=== PATIENT | female | born 1955 | race Caucasian/White ===

== ENCOUNTER → 2017-01-17 | Outpatient (CLI) | payer OTHER ==
--- NOTE | 2017-01-17 16:52 | XR ---
EXAMINATION TYPE: XR knee complete LT DATE OF EXAM: 01/17/2017 COMPARISON: NONE HISTORY: Knee pain. Injury. TECHNIQUE: 3 views FINDINGS: There is mild spurring of the medial femoral and tibial condyles. There is spurring on the patella. There is a small knee joint effusion. I see no fracture nor dislocation. 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 No fracture.
== END ==
LOC: RADXRMAIN 16:37
PROVIDERS: ATTEND Emergency Medicine
DX: M17.12 Unilateral primary osteoarthritis, left knee (principal)

== ENCOUNTER 2017-02-09 14:27 | Emergency (ER) | payer BC, OTHER ==
[2017-02-09] MEDS ORDERED: LORazepam 2 MG/ML INJ IM STA (14:51)
[2017-02-09] MEDS ORDERED: MECLIZINE 12.5 MG TAB PO STA (14:51)
[2017-02-09 15:07] LABS: Basophils % (A) 1 %; CH 31.9; CHCM 34.8; Eosinophils # (A) 0.1 k/uL (0-0.7); Eosinophils % (A) 2 %; HCT 48.2 % (34.0-46.0); HGB 16.4 gm/dL (11.4-16.0); Luc # (Auto) 0.07; Luc % (Auto) 1; Lymphocytes # (A) 0.8 k/uL (1.0-4.8); Lymphocytes % (A) 16 %; MCH 31.3 pg (25.0-35.0); MCHC 34.1 g/dL (31.0-37.0); MCV 91.9 fL (80.0-100.0); Mean Platelet Volume 8.6; Monocytes # (A) 0.3 k/uL (0-1.0); Monocytes % (A) 7 %; Neutrophils # (A) 3.5 k/uL (1.3-7.7); Neutrophils % (A) 74 %; RBC 5.24 m/uL (3.80-5.40); RDW 13.2 % (11.5-15.5); WBC 4.8 k/uL (3.8-10.6); WBC (Perox) 4.49
[2017-02-09 15:23] LABS: ALT 33 U/L (9-52); AST 22 U/L (14-36); Alkaline Phosphatase 78 U/L (38-126); Anion Gap 10 mmol/L; Blood Urea Nitrogen 12 mg/dL (7-17); Calcium 9.7 mg/dL (8.4-10.2); Carbon Dioxide 23 mmol/L (22-30); Chloride 102 mmol/L (98-107); Glucose 97 mg/dL (74-99); Non-African American GFR(MDRD) >60 (>60 ml/min/1.73 sqM); Potassium 4.4 mmol/L (3.5-5.1); Sodium 135 mmol/L (137-145); Total Bilirubin 0.6 mg/dL (0.2-1.3); Total Protein 7.4 g/dL (6.3-8.2)
--- NOTE | 2017-02-09 15:48 | CT ---
EXAMINATION TYPE: CT brain wo con DATE OF EXAM: 02/09/2017 COMPARISON: NONE HISTORY: Dizziness. History of CVA CT DLP: 1090.4 mGycm Automated exposure control for dose reduction was used. FINDINGS: Ventricles have fairly normal size. There is a 4 x 3 cm area of hypodensity in the left posterior tem poral lobe consistent with old cortical infarct. There is no mass effect nor midline shift. There is no sign of intracranial hemorrhage. The calvarium is intact. There is a large mucus retention cyst in the right maxillary sinus. 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 NO ACUTE INTRACRANIAL ABNORMALITY.
[2017-02-09] MEDS ORDERED: ACETAMINOPHEN TAB 500 MG TAB PO STA (16:00)
[2017-02-09 16:01] VITALS: RESP 18
--- NOTE | 2017-02-09 16:19 | XR ---
EXAMINATION TYPE: XR chest 2V DATE OF EXAM: 02/09/2017 COMPARISON: 03/07/2015 HISTORY: Hypertension TECHNIQUE: Frontal and lateral views of the chest are obtained. FINDINGS: Heart and mediastinum are normal. Lungs are clear. Diaphragm is normal. Bony thorax is int act. IMPRESSION: Normal chest. No change.
--- NOTE | 2017-02-09 16:24 | ED ---
Dizziness HPI - General Chief Complaint: Dizziness Stated Complaint: dizzy/hearing sounds Time Seen by Provider: 02/09/17 14:44 Source: patient Mode of arrival: wheelchair Limitations: no limitations - History of Present Illness Initial Comments: 61 years old female had a headache and dizziness since this morning denies any problem with her physician no chest pain no shortness of breath no symptoms or signs of TIA or CVA she does have a history of CVA in the past there was 5 years ago she also had a headache today. Review of system is unremarkable otherwise - Related Data Home Medications Medication Instructions Recorded Confirmed ALPRAZolam [Xanax] 0.25 mg PO BID PRN 03/07/15 02/09/17 Atenolol 37.5 mg PO DAILY 03/07/15 02/09/17 Clopidogrel [Plavix] 75 mg PO DAILY 03/07/15 02/09/17 Desvenlafaxine Succinate [Pristiq 100 mg PO DAILY 03/07/15 02/09/17 ER] Varenicline [Chantix] 0.5 mg PO BID 02/09/17 02/09/17 Previous Rx's Medication Instructions Recorded Amoxicillin 500 mg PO Q8H #30 capsule 02/09/17 Metoclopramide [Reglan] 10 mg PO ACHS #15 tab 02/09/17 Allergies Allergy/AdvReac Type Severity Reaction Status Date / Time No Known Allergies Allergy Verified 02/09/17 15:17 Review of Systems ROS Statement: Those systems with pertinent positive or pertinent negative responses have been documented in the HPI. ROS Other: All systems not noted in ROS Statement are negative. Past Medical History Past Medical History: CVA/TIA, Hyperlipidemia, Hypertension History of Any Multi-Drug Resistant Organisms: None Reported Past Surgical History: Appendectomy, Cholecystectomy, Orthopedic Surgery Additional Past Surgical History / Comment(s): cholostomy, reversal cholostomy, lap band, knee and hip replaced Past Psychological History: Anxiety, Depression Smoking Status: Former smoker Past Alcohol Use History: Occasional Past Drug Use History: None Reported General Exam - General Exam Comments Initial Comments: General: The patient is awake and alert, in no distress, and does not appear acutely ill. He has is 15 Skin: Skin is warm and dry and no rashes or lesions are noted. Eye: Pupils are equal, round and reactive to light, extra-ocular movements are intact; there is normal conjunctiva bilaterally. Ears, nose, mouth and throat: Tympanic membrane is erythematous and bulging and noticed some fluid on the other side bend the tympanic membrane Neck: The neck is supple, there is no tenderness or JVD. Cardiovascular: There is a regular rate and rhythm. No murmur, rub or gallop is appreciated. Respiratory: To auscultation bilateral, no wheezing no rhonchi no distress respiratory blanca noticed Gastrointestinal: Soft, non-distended, non-tender abdomen without masses or organomegaly noted. There is no rebound or guarding present. Bowel sounds are unremarkable. Back: There is no tenderness to palpation in the midline. There is no obvious deformity. Musculoskeletal: Normal ROM, no tenderness, There is no pedal edema. There is no calf tenderness or swelling. No cords were appreciated. Neurological: CN II-XII intact, Cranial nerves III through XII are intact. There are no obvious motor or sensory deficits. Coordination appears grossly intact. Speech is normal. Psychiatric: Cooperative, appropriate mood & affect, normal judgment. Limitations: no limitations Course Vital Signs 02/09/17 02/09/17 14:28 16:00 Temperature 100.7 F H 101.2 F H Pulse Rate 81 74 Respiratory 20 18 Rate Blood Pressure 137/80 178/69 O2 Sat by Pulse 97 98 Oximetry EKG Findings - EKG Comments: EKG Findings:: EKG is normal sinus rhythm ventricular rate of 77 DE interval is 164 QRS duration is 78 QT/QTc is 366/414 of this EKG did not reveal any ST elevation or ST depression Medical Decision Making - Lab Data Result diagrams: 02/09/17 14:51 02/09/17 14:51 Lab Results 02/09/17 02/09/17 02/09/17 Range/Units 14:51 14:51 14:51 WBC 4.8 (3.8-10.6) k/uL RBC 5.24 (3.80-5.40) m/uL Hgb 16.4 H (11.4-16.0) gm/dL Hct 48.2 H (34.0-46.0) % MCV 91.9 (80.0-100.0) fL MCH 31.3 (25.0-35.0) pg MCHC 34.1 (31.0-37.0) g/dL RDW 13.2 (11.5-15.5) % Plt Count 212 (150-450) k/uL Neutrophils % 74 % Lymphocytes % 16 % Monocytes % 7 % Eosinophils % 2 % Basophils % 1 % Neutrophils # 3.5 (1.3-7.7) k/uL Lymphocytes # 0.8 L (1.0-4.8) k/uL Monocytes # 0.3 (0-1.0) k/uL Eosinophils # 0.1 (0-0.7) k/uL Basophils # 0.0 (0-0.2) k/uL Sodium 135 L (137-145) mmol/L Potassium 4.4 (3.5-5.1) mmol/L Chloride 102 (98-107) mmol/L Carbon Dioxide 23 (22-30) mmol/L Anion Gap 10 mmol/L BUN 12 (7-17) mg/dL Creatinine 0.82 (0.52-1.04) mg/dL Est GFR (MDRD) Af Amer >60 (>60 ml/min/1.73 sqM) Est GFR (MDRD) Non-Af >60 (>60 ml/min/1.73 sqM) Glucose 97 (74-99) mg/dL Plasma Lactic Acid Matias (0.7-2.0) mmol/L Calcium 9.7 (8.4-10.2) mg/dL Total Bilirubin 0.6 (0.2-1.3) mg/dL AST 22 (14-36) U/L ALT 33 (9-52) U/L Alkaline Phosphatase 78 (38-126) U/L Troponin I <0.012 (0.000-0.034) ng/mL Total Protein 7.4 (6.3-8.2) g/dL Albumin 4.4 (3.5-5.0) g/dL 02/09/17 Range/Units 14:51 WBC (3.8-10.6) k/uL RBC (3.80-5.40) m/uL Hgb (11.4-16.0) gm/dL Hct (34.0-46.0) % MCV (80.0-100.0) fL MCH (25.0-35.0) pg MCHC (31.0-37.0) g/dL RDW (11.5-15.5) % Plt Count (150-450) k/uL Neutrophils % % Lymphocytes % % Monocytes % % Eosinophils % % Basophils % % Neutrophils # (1.3-7.7) k/uL Lymphocytes # (1.0-4.8) k/uL Monocytes # (0-1.0) k/uL Eosinophils # (0-0.7) k/uL Basophils # (0-0.2) k/uL Sodium (137-145) mmol/L Potassium (3.5-5.1) mmol/L Chloride (98-107) mmol/L Carbon Dioxide (22-30) mmol/L Anion Gap mmol/L BUN (7-17) mg/dL Creatinine (0.52-1.04) mg/dL Est GFR (MDRD) Af Amer (>60 ml/min/1.73 sqM) Est GFR (MDRD) Non-Af (>60 ml/min/1.73 sqM) Glucose (74-99) mg/dL Plasma Lactic Acid Matias 1.3 (0.7-2.0) mmol/L Calcium (8.4-10.2) mg/dL Total Bilirubin (0.2-1.3) mg/dL AST (14-36) U/L ALT (9-52) U/L Alkaline Phosphatase (38-126) U/L Troponin I (0.000-0.034) ng/mL Total Protein (6.3-8.2) g/dL Albumin (3.5-5.0) g/dL Disposition Clinical Impression: Dizziness, Otitis media Disposition: HOME SELF-CARE Condition: Good Instructions: Dizziness (ED) Prescriptions: Amoxicillin 500 mg PO Q8H #30 capsule Metoclopramide [Reglan] 10 mg PO ACHS #15 tab Referrals: Anastasia Guillory III, MD [Primary Care Provider] - 1-2 days
[2017-02-09 16:59] VITALS: BP 135/68; PULSE 75; TEMP 98
== END 2017-02-09 17:00 | disposition home or self-care (01) ==
LOC: EC 14:27
DX: R42 Dizziness and giddiness (principal); H66.90 Otitis media, unspecified, unspecified ear; I10 Essential (primary) hypertension; F32.9 Major depressive disorder, single episode, unspecified; Z87.891 Personal history of nicotine dependence; Z86.73 Personal history of transient ischemic attack (TIA), and cerebral infarction without residual deficits; Z79.02 Long term (current) use of antithrombotics/antiplatelets; Z79.899 Other long term (current) drug therapy
CPT/HCPCS: 96372 ×2; 99284 ×2; 36415; 93005; 80053; 83605; 84484; 85025; 87040; 71020; 70450; J2060

== ENCOUNTER → 2017-11-27 | Outpatient (CLI) | payer BC ==
--- NOTE | 2017-12-03 09:54 | MM ---
Reason for exam: screening (asymptomatic). Last mammogram was performed 4 years and 3 months ago. History: Patient is postmenopausal. Physical Findings: A clinical breast exam by your physician is recommended on an annual basis and results should be correlated with mammographic findings. MG Screening Mammo w CAD Bilateral CC and MLO view(s) were taken. Prior study comparison: August 13, 2013, bilateral digital screening mammo w/CAD. There are scattered fibroglandular densities. Focal asymmetry left upper outer quadrant, stable. No significant changes when compared with prior studies. ASSESSMENT: Benign, BI-RAD 2 RECOMMENDATION: Routine screening mammogram of both breasts in 1 year.
== END | disposition home or self-care (01) ==
LOC: RADMAMWWP 13:33
PROVIDERS: ATTEND Family Medicine
DX: Z12.31 Encounter for screening mammogram for malignant neoplasm of breast (principal)
CPT/HCPCS: 77067

== ENCOUNTER 2020-05-19 06:07 | Observation (INO) | payer BC ==
[2020-05-19] MEDS ORDERED: ONDANSETRON 4 MG/2 ML VIAL IVP STA (06:23)
[2020-05-19] MEDS ORDERED: HYDROmorphone 1 MG/ML 1 ML SYRINGE IVP STA (06:23)
[2020-05-19] MEDS ORDERED: SODIUM CHLORIDE 0.9% 500 ML 500 ML IV STA (06:23)
[2020-05-19] MEDS ORDERED: SODIUM CHLORIDE 0.9% 1,000 ML IV STA (06:23)
[2020-05-19 06:32] LABS: Basophils # (A) 0.1 k/uL (0-0.2); Basophils % (A) 1 %; Eosinophils # (A) 0.2 k/uL (0-0.7); Eosinophils % (A) 3 %; HCT 48.4 % (34.0-46.0); HGB 16.9 gm/dL (11.4-16.0); Lymphocytes # (A) 2.6 k/uL (1.0-4.8); Lymphocytes % (A) 36 %; MCH 31.5 pg (25.0-35.0); MCV 90.2 fL (80.0-100.0); Mean Platelet Volume 8.5; Monocytes # (A) 0.4 k/uL (0-1.0); Monocytes % (A) 5 %; Neutrophils # (A) 3.8 k/uL (1.3-7.7); Neutrophils % (A) 52 %; Platelet Count 254 k/uL (150-450); RBC 5.36 m/uL (3.80-5.40); RDW 12.5 % (11.5-15.5); WBC 7.3 k/uL (3.8-10.6)
--- NOTE | 2020-05-19 06:37 | ED ---
Abdominal Pain HPI <Vic Alba - Last Filed: 05/19/20 08:30> - General Source: patient, family, RN notes reviewed Mode of arrival: wheelchair Limitations: no limitations <Jack Wong - Last Filed: 05/19/20 08:33> - General Chief Complaint: Abdominal Pain Stated Complaint: Abd Pain Time Seen by Provider: 05/19/20 06:12 - History of Present Illness Initial Comments: This a 64-year-old female presents emergency Department chief complaint of left- sided abdominal pain. Patient states this started on Friday states that she contact her primary care physician states that they cannot get into Friday she states that she could wait but states pain intensified this morning and overnight. Patient states she's felt nauseated no vomiting she's had normal bowel movements denies any diarrhea, constipation, melena hematochezia. Patient does admit that she had prior abdominal surgery which she had emergent surgery for perforated diverticulitis with colostomy, patient did have reversal. Patient has no dysuria no hematuria no increased weakness urination no fevers chills no chest pain or shortness breath. Patient states this is the worst pain she's ever felt. Patient states pain is localized to left lower quadrant. Patient offers no other complaints. (Jack Wong) - Related Data Home Medications Medication Instructions Recorded Confirmed Clopidogrel [Plavix] 75 mg PO DAILY 03/07/15 05/19/20 atenoloL [Atenolol] 37.5 mg PO DAILY 03/07/15 05/19/20 ALPRAZolam [Xanax] 0.5 mg PO HS 05/19/20 05/19/20 Acetaminophen [Tylenol Arthritis] 1,300 mg PO Q12H PRN 05/19/20 05/19/20 Vortioxetine Hydrobromide 10 mg PO DAILY 05/19/20 05/19/20 [Trintellix] lamoTRIgine [LaMICtal] 25 mg PO HS 05/19/20 05/19/20 Allergies Allergy/AdvReac Type Severity Reaction Status Date / Time No Known Allergies Allergy Verified 05/19/20 07:29 Review of Systems ROS Other: All systems not noted in ROS Statement are negative. <Vic Alba - Last Filed: 05/19/20 08:30> ROS Other: All systems not noted in ROS Statement are negative. <Jack Wong - Last Filed: 05/19/20 08:33> ROS Statement: Those systems with pertinent positive or pertinent negative responses have been documented in the HPI. Past Medical History Past Medical History: CVA/TIA, Hyperlipidemia, Hypertension History of Any Multi-Drug Resistant Organisms: None Reported Past Surgical History: Appendectomy, Cholecystectomy, Orthopedic Surgery Additional Past Surgical History / Comment(s): cholostomy, reversal cholostomy, lap band, knee and hip replaced Past Psychological History: Anxiety, Depression Smoking Status: Never smoker Past Alcohol Use History: Occasional Past Drug Use History: None Reported <Jack Wong - Last Filed: 05/19/20 08:33> General Exam Limitations: no limitations General appearance: alert, in no apparent distress Head exam: Present: atraumatic, normocephalic, normal inspection Eye exam: Present: normal appearance, PERRL, EOMI. Absent: scleral icterus, conjunctival injection, periorbital swelling Neck exam: Present: normal inspection. Absent: tenderness, meningismus, lymphadenopathy Respiratory exam: Present: normal lung sounds bilaterally. Absent: respiratory distress, wheezes, rales, rhonchi, stridor Cardiovascular Exam: Present: regular rate, normal rhythm, normal heart sounds. Absent: systolic murmur, diastolic murmur, rubs, gallop, clicks GI/Abdominal exam: Present: soft, tenderness (Severe left lower quadrant te nderness), guarding (Voluntary), normal bowel sounds. Absent: distended, rebound, rigid Back exam: Absent: CVA tenderness (R), CVA tenderness (L) Neurological exam: Present: alert, oriented X3 <Jack Wong - Last Filed: 05/19/20 08:33> Course Vital Signs 05/19/20 05/19/20 06:08 06:48 Temperature 98.5 F Pulse Rate 92 66 Respiratory 22 18 Rate Blood Pressure 211/107 167/76 O2 Sat by Pulse 97 96 Oximetry Medical Decision Making - Lab Data Result diagrams: 05/19/20 06:26 05/19/20 06:26 <Vic Alba - Last Filed: 05/19/20 08:30> - Lab Data Result diagrams: 05/19/20 06:26 05/19/20 06:26 <Jack Wong - Last Filed: 05/19/20 08:33> - Medical Decision Making Patient reevaluated and reexamined by myself, Dr. Alba. Patient complains of continued discomfort despite several medications. Abdomen is soft with mild tenderness in the lower mid abdomen. CT report reviewed. Case discussed with Dr. Costa who will admit his patient. He did review computed tomography scan. (Vic Alba) - Lab Data Lab Results 05/19/20 05/19/20 05/19/20 Range/Units 06:26 06:26 06:26 WBC 7.3 (3.8-10.6) k/uL RBC 5.36 (3.80-5.40) m/uL Hgb 16.9 H (11.4-16.0) gm/dL Hct 48.4 H (34.0-46.0) % MCV 90.2 (80.0-100.0) fL MCH 31.5 (25.0-35.0) pg MCHC 35.0 (31.0-37.0) g/dL RDW 12.5 (11.5-15.5) % Plt Count 254 (150-450) k/uL MPV 8.5 Neutrophils % 52 % Lymphocytes % 36 % Monocytes % 5 % Eosinophils % 3 % Basophils % 1 % Neutrophils # 3.8 (1.3-7.7) k/uL Lymphocytes # 2.6 (1.0-4.8) k/uL Monocytes # 0.4 (0-1.0) k/uL Eosinophils # 0.2 (0-0.7) k/uL Basophils # 0.1 (0-0.2) k/uL Sodium 140 (137-145) mmol/L Potassium 4.2 (3.5-5.1) mmol/L Chloride 107 (98-107) mmol/L Carbon Dioxide 25 (22-30) mmol/L Anion Gap 8 mmol/L BUN 15 (7-17) mg/dL Creatinine 0.92 (0.52-1.04) mg/dL Est GFR (CKD-EPI)AfAm 77 (>60 ml/min/1.73 sqM) Est GFR (CKD-EPI)NonAf 67 (>60 ml/min/1.73 sqM) Glucose 169 H (74-99) mg/dL Plasma Lactic Acid Matias 1.5 (0.7-2.0) mmol/L Calcium 10.0 (8.4-10.2) mg/dL Total Bilirubin 1.1 (0.2-1.3) mg/dL AST 33 (14-36) U/L ALT 37 H (4-34) U/L Alkaline Phosphatase 61 (38-126) U/L Troponin I (0.000-0.034) ng/mL Total Protein 7.9 (6.3-8.2) g/dL Albumin 4.9 (3.5-5.0) g/dL Amylase 45 (30-110) U/L Lipase 127 (23-300) U/L Urine Color Urine Appearance (Clear) Urine pH (5.0-8.0) Ur Specific Blackwell (1.001-1.035) Urine Protein (Negative) Urine Glucose (UA) (Negative) Urine Ketones (Negative) Urine Blood (Negative) Urine Nitrite (Negative) Urine Bilirubin (Negative) Urine Urobilinogen (<2.0) mg/dL Ur Leukocyte Esterase (Negative) Urine RBC (0-5) /hpf Urine WBC (0-5) /hpf Ur Squamous Epith Cells (0-4) /hpf Urine Bacteria (None) /hpf Hyaline Casts (0-2) /lpf Urine Mucus (None) /hpf 05/19/20 05/19/20 Range/Units 06:26 07:53 WBC (3.8-10.6) k/uL RBC (3.80-5.40) m/uL Hgb (11.4-16.0) gm/dL Hct (34.0-46.0) % MCV (80.0-100.0) fL MCH (25.0-35.0) pg MCHC (31.0-37.0) g/dL RDW (11.5-15.5) % Plt Count (150-450) k/uL MPV Neutrophils % % Lymphocytes % % Monocytes % % Eosinophils % % Basophils % % Neutrophils # (1.3-7.7) k/uL Lymphocytes # (1.0-4.8) k/uL Monocytes # (0-1.0) k/uL Eosinophils # (0-0.7) k/uL Basophils # (0-0.2) k/uL Sodium (137-145) mmol/L Potassium (3.5-5.1) mmol/L Chloride (98-107) mmol/L Carbon Dioxide (22-30) mmol/L Anion Gap mmol/L BUN (7-17) mg/dL Creatinine (0.52-1.04) mg/dL Est GFR (CKD-EPI)AfAm (>60 ml/min/1.73 sqM) Est GFR (CKD-EPI)NonAf (>60 ml/min/1.73 sqM) Glucose (74-99) mg/dL Plasma Lactic Acid Matias (0.7-2.0) mmol/L Calcium (8.4-10.2) mg/dL Total Bilirubin (0.2-1.3) mg/dL AST (14-36) U/L ALT (4-34) U/L Alkaline Phosphatase (38-126) U/L Troponin I <0.012 (0.000-0.034) ng/mL Total Protein (6.3-8.2) g/dL Albumin (3.5-5.0) g/dL Amylase (30-110) U/L Lipase (23-300) U/L Urine Color Yellow Urine Appearance Clear (Clear) Urine pH 6.0 (5.0-8.0) Ur Specific Blackwell 1.046 H (1.001-1.035) Urine Protein 1+ H (Negative) Urine Glucose (UA) Negative (Negative) Urine Ketones Negative (Negative) Urine Blood Small H (Negative) Urine Nitrite Negative (Negative) Urine Bilirubin Negative (Negative) Urine Urobilinogen <2.0 (<2.0) mg/dL Ur Leukocyte Esterase Negative (Negative) Urine RBC 7 H (0-5) /hpf Urine WBC 1 (0-5) /hpf Ur Squamous Epith Cells 1 (0-4) /hpf Urine Bacteria Rare H (None) /hpf Hyaline Casts 21 H (0-2) /lpf Urine Mucus Rare H (None) /hpf Disposition <Vic Alba - Last Filed: 05/19/20 08:30> <Jack Wong - Last Filed: 05/19/20 08:33> Clinical Impression: Internal hernia, Intractable abdominal pain Disposition: ADMITTED IP TO THIS [facility] Condition: Fair Referrals: Lizeth Mcdaniels MD [Primary Care Provider] - 1-2 days
[2020-05-19] MEDS ORDERED: HYDROmorphone 0.5 MG/0.5 ML SYRINGE IVP STA ×2 (06:41→07:54)
[2020-05-19 06:53] LABS: Albumin 4.9 g/dL (3.5-5.0); Potassium 4.2 mmol/L (3.5-5.1); Total Bilirubin 1.1 mg/dL (0.2-1.3); Total Protein 7.9 g/dL (6.3-8.2)
--- NOTE | 2020-05-19 07:50 | CT ---
EXAMINATION TYPE: CT abdomen pelvis w con DATE OF EXAM: 05/19/2020 HISTORY: LLQ pain CT DLP: 1882.6mGycm Automated Exposure Control for Dose Reduction was Utilized. CONTRAST: CT scan of the abdomen and pelvis is performed without oral but with IV Contrast, patient injected wi th 100 mL of Isovue 300. COMPARISON: CT abdomen and pelvis March 07, 2015 FINDINGS: LUNG BASES: Slightly elevated left hemidiaphragm. LIVER/GB: Visualized liver is heterogeneously hypodense consistent with fatty infiltration. Cholecyst ectomy clips are redemonstrated. PANCREAS: No significant abnormality is seen. SPLEEN: No significant abnormality is seen. ADRENALS: No significant abnormality is seen. KIDNEYS: Symmetric cortical medullary uptake and excretion without hydronephrosis seen bilaterally. P artially exophytic elongated thin-walled 2.2 cm cyst laterally up to midpole of left kidney coronal i mage 54 is redemonstrated. BOWEL: Suboptimal evaluation bowel without enteric contrast. Lap band device redemonstrated. Ankle is stable. Slightly more inferior positioning relative to left hemidiaphragm roughly 2.1 cm in length, this is more prominent from prior. Slightly more prominent stomach superior to this. Mild to moderate wall thickening in the distal esophagus. No suspicious small or large bowel dilatation. A few scatte red air-fluid levels and fluid-filled small bowel loops left pelvis. Few scattered colonic diverticul a. No surrounding inflammatory change. Surgical sutures sigmoid colon axial image 61 left pelvis are redemonstrated. UTERUS/ADNEXA: Anteverted uterus. Multiple bilateral scattered pelvic phleboliths. LYMPH NODES: No greater than 1cm abdominal or pelvic lymph nodes are appreciated. Some swirling of me senteric vessels in thee the upper pelvis centrally axial image 58 noted. OSSEOUS STRUCTURES: Metallic hardware from right hip arthroplasty causes streak artifact making evalu ation of pelvic structures slightly suboptimal. OTHER: Soft tissue scarring anterior left pelvis redemonstrated. Moderate mixed plaque of the aorta e xtends into branch vessels IMPRESSION: 1. Swirling of mesenteric vessels and tiny lymph nodes in the upper pelvis suspicious for internal he rnia. Few air-fluid levels in left-sided small bowel loops in the pelvis noted. Overall no suspicious dilatation to suggest bowel obstruction. Scattered colonic diverticula. No CT evidence for acute div erticulitis. 2. Some interval inferior lap band slippage noted since [address] CT.
[2020-05-19 08:13] LABS: Appearance,Urine Clear (Clear); Bacteria,Urine Rare /hpf; Bilirubin,Urine Negative (Negative); Blood,Urine Small (Negative); Color,Urine Yellow; Glucose,Urine (UA) Negative (Negative); Hyaline Casts,Urine 21 /lpf (0-2); Ketones,Urine Negative (Negative); Leukocyte Esterase,Urine Negative (Negative); Mucus,Urine Rare /hpf; Nitrite,Urine Negative (Negative); Protein,Urine 1+ (Negative); RBC,Urine 7 /hpf (0-5); Squamous Epithelial Cell,Urine 1 /hpf (0-4); Urobilinogen,Urine <2.0 mg/dL (<2.0); WBC,Urine 1 /hpf (0-5)
[2020-05-19 08:20] LABS: Specific Gravity,Urine 1.046 (1.001-1.035)
[2020-05-19] MEDS ORDERED: NALOXONE 0.4 MG/ML 1 ML VIAL IV PRN (08:33)
[2020-05-19] MEDS: SODIUM CHLORIDE 0.9% 1,000 ML IV SCH ×2 (09:08→20:57)
[2020-05-19] MEDS: HYDROmorphone 0.5 MG/0.5 ML SYRINGE IVP PRN ×2 (11:00→21:00)
[2020-05-19] MEDS: ONDANSETRON 4 MG/2 ML VIAL IVP PRN (11:02)
[2020-05-19] MEDS: HYDROmorphone 1 MG/ML 1 ML SYRINGE IVP PRN ×2 (13:56→17:18)
--- NOTE | 2020-05-19 15:47 | P.GSHP ---
History of Present Illness H&P Date: 05/19/20 Chief Complaint: Abdominal pain 64-year-old female known to our service. Patient started having pain on Friday. Pain is been in the left mid abdomen and radiates to the left back. It is somewhat intermittent initially however since last night has been more constant and has been increasing in severity. Some nausea but no vomiting. An ice dysphagia or retching. Says deep breathing and pickups causes the pain to be worse. Patient has a history of previous perforated diverticulitis requiring colostomy and subsequent sigmoid resection with reversal area patient says this felt like that episode did. Patient denies any change in bowel habits recently. No fevers. Patient with history of previous lap band placement. White blood cell count normal. Vital signs stable. Lactic acid normal. Patient had CAT scan abdomen and pelvis which has been reviewed with radiology. The patient has a prominent gastric pouch that appears consistent with a possible small pro lapse. Stomach itself does not show any inflammatory changes. Patient denies any GERD symptoms or vomiting. No reflux. Previous colonic resection without inflammatory change. Left kidney with cyst present. Slight twisting of the mesentery of the small bowel in the pelvis and internal hernia was described as a possibility however no inflammatory changes of the mesentery or bowel abnormalities are present. Patient states her pain currently is 0 out of 10 although she did get pain medicine in the last hour or so. No urinary symptoms. Urinalysis looks fairly normal. - Review of Systems Comment: The patient denies any acute changes in vision or hearing, no dysphagia or odynophagia, no chest pain or shortness of breath, no dysuria or hematuria, no headache, no runny nose, no rectal bleeding or melena, no unexplained weight loss Past Medical History Past Medical History: CVA/TIA, Hyperlipidemia, Hypertension History of Any Multi-Drug Resistant Organisms: None Reported Past Surgical History: Appendectomy, Cholecystectomy, Orthopedic Surgery Additional Past Surgical History / Comment(s): cholostomy, reversal cholostomy, lap band, knee and hip replaced Past Psychological History: Anxiety, Depression Smoking Status: Never smoker Past Alcohol Use History: Occasional Past Drug Use History: None Reported Medications and Allergies Home Medications Medication Instructions Recorded Confirmed Type Clopidogrel [Plavix] 75 mg PO DAILY 03/07/15 05/19/20 History atenoloL [Atenolol] 37.5 mg PO DAILY 03/07/15 05/19/20 History ALPRAZolam [Xanax] 0.5 mg PO HS 05/19/20 05/19/20 History Acetaminophen [Tylenol Arthritis] 1,300 mg PO Q12H PRN 05/19/20 05/19/20 History Vortioxetine Hydrobromide 10 mg PO DAILY 05/19/20 05/19/20 History [Trintellix] lamoTRIgine [LaMICtal] 25 mg PO HS 05/19/20 05/19/20 History Allergies Allergy/AdvReac Type Severity Reaction Status Date / Time No Known Allergies Allergy Verified 05/19/20 07:29 Surgical - Exam Vital Signs Temp Pulse Resp BP Pulse Ox 98.5 F 92 22 211/107 97 05/19/20 06:08 05/19/20 06:08 05/19/20 06:08 05/19/20 06:08 05/19/20 06:08 Physical exam: General: Well-developed, well-nourished HEENT: Normocephalic, sclerae nonicteric Abdomen: Mild left flank tenderness, mild left upper quadrant tenderness, mild left CVA tenderness, nondistended Extremities: No edema Neuro: Alert and oriented Results - Labs 05/19/20 06:26 05/19/20 06:26 Abnormal Lab Results - Last 24 Hours (Table) 05/19/20 05/19/20 05/19/20 Range/Units 06:26 06:26 07:53 Hgb 16.9 H (11.4-16.0) gm/dL Hct 48.4 H (34.0-46.0) % Glucose 169 H (74-99) mg/dL ALT 37 H (4-34) U/L Ur Specific [place] 1.046 H (1.001-1.035) Urine Protein 1+ H (Negative) Urine Blood Small H (Negative) Urine RBC 7 H (0-5) /hpf Urine Bacteria Rare H (None) /hpf Hyaline Casts 21 H (0-2) /lpf Urine Mucus Rare H (None) /hpf Diabetes panel 05/19/20 Range/Units 06:26 Sodium 140 (137-145) mmol/L Potassium 4.2 (3.5-5.1) mmol/L Chloride 107 (98-107) mmol/L Carbon Dioxide 25 (22-30) mmol/L BUN 15 (7-17) mg/dL Creatinine 0.92 (0.52-1.04) mg/dL Glucose 169 H (74-99) mg/dL Calcium 10.0 (8.4-10.2) mg/dL AST 33 (14-36) U/L ALT 37 H (4-34) U/L Alkaline Phosphatase 61 (38-126) U/L Total Protein 7.9 (6.3-8.2) g/dL Albumin 4.9 (3.5-5.0) g/dL Calcium panel 05/19/20 Range/Units 06:26 Calcium 10.0 (8.4-10.2) mg/dL Albumin 4.9 (3.5-5.0) g/dL Pituitary panel 05/19/20 Range/Units 06:26 Sodium 140 (137-145) mmol/L Potassium 4.2 (3.5-5.1) mmol/L Chloride 107 (98-107) mmol/L Carbon Dioxide 25 (22-30) mmol/L BUN 15 (7-17) mg/dL Creatinine 0.92 (0.52-1.04) mg/dL Glucose 169 H (74-99) mg/dL Calcium 10.0 (8.4-10.2) mg/dL Adrenal panel 05/19/20 Range/Units 06:26 Sodium 140 (137-145) mmol/L Potassium 4.2 (3.5-5.1) mmol/L Chloride 107 (98-107) mmol/L Carbon Dioxide 25 (22-30) mmol/L BUN 15 (7-17) mg/dL Creatinine 0.92 (0.52-1.04) mg/dL Glucose 169 H (74-99) mg/dL Calcium 10.0 (8.4-10.2) mg/dL Total Bilirubin 1.1 (0.2-1.3) mg/dL AST 33 (14-36) U/L ALT 37 H (4-34) U/L Alkaline Phosphatase 61 (38-126) U/L Total Protein 7.9 (6.3-8.2) g/dL Albumin 4.9 (3.5-5.0) g/dL Assessment and Plan (1) Intractable abdominal pain Narrative/Plan: 64-year-old female with atypical abdominal pain. Pain is mostly left sided. Discussed with patient given the fact that pain seems to be aggravated by deep breathing and hiccups that the patient's band should be empty in the event that an acute slipped is present although unlikely given the lack of GI symptoms. Internal hernia remains a possibility however the CAT scan findings are very subtle and her pain is atypical for small bowel ischemia/internal hernia. We'll repeat labs and x-rays tomorrow. Keep nothing by mouth for now. Begin broad- spectrum antibiotics. Continue analgesics. We'll follow closely. Current Visit: Yes Status: Acute Code(s): R10.9 - UNSPECIFIED ABDOMINAL PAIN SNOMED Code(s): 22777468
[2020-05-19] MEDS ORDERED: METOCLOPRAMIDE 5 MG/ML 2 ML VIAL IVP PRN (15:48)
[2020-05-19] MEDS ORDERED: Acetaminophen-Codeine 300-30mg TAB PO PRN (15:48)
[2020-05-19] MEDS ORDERED: ALPRAZolam 0.5 MG TAB PO PRN (17:12)
--- NOTE | 2020-05-19 17:54 | P.CONS ---
History of Present Illness - Reason for Consult History of CVA management of antiplatelet therapy. - History of Present Illness This is a pleasant 64-year-old female came in with complaints of left lower quad rant abdominal pain sharp in nature 10/10 in severity is is with nausea but without any vomiting. The patient had history of perforated diverticular medicine the past and it up having a colostomy H was subsequently reversed because of which patient is concerned and came to ER patient had a CT of the abdomen which showed possibility of slight twisting of Bhumi 3 of the small bowel and possibility of internal hernia because of which patient was admitted to general surgery. Medicine was consulted for management of her medications and antiplatelet. Patient is receiving Dilaudid for pain and patient pain at this time is much better. Review of Systems REVIEW OF SYSTEMS: CONSTITUTIONAL: No fever, no malaise, no fatigue. HEENT: No recent visual problems or hearing problems. Denied any sore throat. CARDIOVASCULAR: No chest pain, orthopnea, PND, no palpitations, no syncope. PULMONARY: No shortness of breath, no cough, no hemoptysis. GASTROINTESTINAL: As mentioned in HPI NEUROLOGICAL: No headaches, no weakness, no numbness. HEMATOLOGICAL: Denies any bleeding or petechiae. GENITOURINARY: Denies any burning micturition, frequency, or urgency. MUSCULOSKELETAL/RHEUMATOLOGICAL: Denies any joint pain, swelling, or any muscle pain. ENDOCRINE: Denies any polyuria or polydipsia. The rest of the 14-point review of systems is negative. Past Medical History Past Medical History: CVA/TIA, Hyperlipidemia, Hypertension History of Any Multi-Drug Resistant Organisms: None Reported Past Surgical History: Appendectomy, Cholecystectomy, Orthopedic Surgery Additional Past Surgical History / Comment(s): cholostomy, reversal cholostomy, perforated diverticulitis lap band, knee and hip replaced Past Psychological History: Anxiety, Depression Smoking Status: Former smoker Past Alcohol Use History: Occasional Past Drug Use History: None Reported Medications and Allergies Home Medications Medication Instructions Recorded Confirmed Type Clopidogrel [Plavix] 75 mg PO DAILY 03/07/15 05/19/20 History atenoloL [Atenolol] 37.5 mg PO DAILY 03/07/15 05/19/20 History ALPRAZolam [Xanax] 0.5 mg PO HS 05/19/20 05/19/20 History Acetaminophen [Tylenol Arthritis] 1,300 mg PO Q12H PRN 05/19/20 05/19/20 History Vortioxetine Hydrobromide 10 mg PO DAILY 05/19/20 05/19/20 History [Trintellix] lamoTRIgine [LaMICtal] 25 mg PO HS 05/19/20 05/19/20 History Allergies Allergy/AdvReac Type Severity Reaction Status Date / Time No Known Allergies Allergy Verified 05/19/20 07:29 Physical Exam Vitals: Vital Signs Temp Pulse Pulse Resp BP BP Pulse Ox 05/19/20 17:45 98.4 F 65 14 121/67 93 L 05/19/20 14:03 56 L 16 140/77 96 05/19/20 06:48 66 18 167/76 96 05/19/20 06:08 98.5 F 92 22 211/107 97 Intake and Output 05/19/20 05/19/20 05/19/20 06:59 14:59 22:59 Other: # Voids 1 Weight 108.862 kg 108.862 kg PHYSICAL EXAMINATION: GENERAL: The patient is alert and oriented x3, not in any acute distress. Obese HEENT: Pupils are round and equally reacting to light. EOMI. No scleral icterus. No conjunctival pallor. Normocephalic, atraumatic. No pharyngeal erythema. No thyromegaly. CARDIOVASCULAR: S1 and S2 present. No murmurs, rubs, or gallops. PULMONARY: Chest is clear to auscultation, no wheezing or crackles. ABDOMEN: Soft, nontender, nondistended, normoactive bowel sounds. No palpable organomegaly. MUSCULOSKELETAL: No joint swelling or deformity. EXTREMITIES: No cyanosis, clubbing, or pedal edema. NEUROLOGICAL: Gross neurological examination did not reveal any focal deficits. SKIN: No rashes. Results CBC & Chem 7: 05/19/20 06:26 05/19/20 06:26 Labs: Abnormal Lab Results - Last 24 Hours (Table) 05/19/20 05/19/20 05/19/20 Range/Units 06:26 06:26 07:53 Hgb 16.9 H (11.4-16.0) gm/dL Hct 48.4 H (34.0-46.0) % Glucose 169 H (74-99) mg/dL ALT 37 H (4-34) U/L Ur Specific [place] 1.046 H (1.001-1.035) Urine Protein 1+ H (Negative) Urine Blood Small H (Negative) Urine RBC 7 H (0-5) /hpf Urine Bacteria Rare H (None) /hpf Hyaline Casts 21 H (0-2) /lpf Urine Mucus Rare H (None) /hpf Assessment and Plan Plan: -Abdominal pain: Possibly of inguinal hernia management as per primary service -cerebro- vascular accident Plavix can be held temporarily, in case patient needs surgical intervention although this is not being planned at this time. 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
[2020-05-19] MEDS: HEPARIN SODIUM,PORCINE 5,000 UNIT/ML 1 ML VIAL SQ SCH (18:22)
[2020-05-19] MEDS: KETOROLAC 15 MG/ML 1 ML VIAL IVP SCH (18:23)
[2020-05-19] MEDS: PIPERACILLIN-TAZOBACTAM 3.375 GM in SODIUM CHLORIDE 0.9% 100 ML IVPB SCH (18:54)
[2020-05-19] MEDS ORDERED: lamoTRIgine 25 MG TAB PO SCH (21:00)
[2020-05-20] MEDS: HEPARIN SODIUM,PORCINE 5,000 UNIT/ML 1 ML VIAL SQ SCH ×2 (00:13→08:41)
[2020-05-20] MEDS: KETOROLAC 15 MG/ML 1 ML VIAL IVP SCH ×3 (00:14→13:51)
[2020-05-20] MEDS: PIPERACILLIN-TAZOBACTAM 3.375 GM in SODIUM CHLORIDE 0.9% 100 ML IVPB SCH ×2 (00:15→08:42)
[2020-05-20] MEDS: HYDROmorphone 1 MG/ML 1 ML SYRINGE IVP PRN (03:54)
--- NOTE | 2020-05-20 07:50 | XR ---
2 view abdomen HISTORY: Abdominal pain 2 views the abdomen submitted correlated to CT scan dated 05/19/2020 Patient is status post lap band. There is no evident pneumoperitoneum. Surgical clips are present in the right upper quadrant. Lung bases are clear. No evident bowel obstruction. Multiple calcifications are present in the pelvis consistent with phleboliths. Patient is post right hip arthroplasty. Degen erative disc changes, spinal curvature noted in the visualized lumbar spine. Atherosclerotic vascular calcifications are present within the pelvis. IMPRESSION: Nonobstructive bowel gas pattern.
[2020-05-20 08:24] LABS: Basophils % (A) 0 %; Eosinophils # (A) 0.1 k/uL (0-0.7); Eosinophils % (A) 1 %; HCT 41.4 % (34.0-46.0); Lymphocytes % (A) 21 %; MCH 30.7 pg (25.0-35.0); MCHC 32.9 g/dL (31.0-37.0); MCV 93.2 fL (80.0-100.0); Mean Platelet Volume 8.4; Monocytes # (A) 0.4 k/uL (0-1.0); Monocytes % (A) 8 %; Neutrophils % (A) 68 %; Platelet Count 182 k/uL (150-450); RBC 4.44 m/uL (3.80-5.40); RDW 13.1 % (11.5-15.5); WBC 4.5 k/uL (3.8-10.6)
[2020-05-20 08:26] LABS: Calcium 8.5 mg/dL (8.4-10.2); Potassium 4.4 mmol/L (3.5-5.1); Total Bilirubin 0.9 mg/dL (0.2-1.3); Total Protein 6.5 g/dL (6.3-8.2)
[2020-05-20 08:40] LABS: HGB 13.6 gm/dL (11.4-16.0)
[2020-05-20] MEDS ORDERED: atenoloL 25 MG TAB PO SCH (09:00)
[2020-05-20] MEDS ORDERED: CLOPIDOGREL 75 MG TAB PO SCH (09:00)
[2020-05-20] MEDS ORDERED: PANTOPRAZOLE 40 MG/10 ML VIAL IV SCH (09:00)
[2020-05-20] MEDS ORDERED: VORTIOXETINE HYDROBROMIDE 10 MG TABLET PO SCH (09:00)
[2020-05-20 09:24] VITALS: RESP 16
[2020-05-20] MEDS: HYDROmorphone 0.5 MG/0.5 ML SYRINGE IVP PRN (09:38)
[2020-05-20] MEDS: ONDANSETRON 4 MG/2 ML VIAL IVP PRN (09:41)
--- NOTE | 2020-05-20 12:03 | P.PN ---
Subjective 64-year-old female came in with complaints of left lower quadrant abdominal pain sharp in nature 10/10 in severity is is with nausea but without any vomiting. The patient had history of perforated diverticular medicine the past and it up having a colostomy H was subsequently reversed because of which patient is concerned and came to ER patient had a CT of the abdomen which showed possibility of slight twisting of Bhumi 3 of the small bowel and possibility of internal hernia because of which patient was admitted to general surgery. Medicine was consulted for management of her medications and antiplatelet. Patient is receiving Dilaudid for pain and patient pain at this time is much better. 05/20/2020 Patient was evaluated by general surgery today and the removed some fluid from the lap band. Patient also is still having pain requiring narcotics. Constitutional: Denied any fatigue denied any fever. Cardio vascular: denied any chest pain, palpitations Gastrointestinal as mentioned in HPI Pulmonary: Denied any shortness of breath cough Neurologic denied any new focal deficits All inpatient medications were reviewed and appropriate changes in these medications as dictated in the interval history and assessment and plan. Objective - Vital Signs Vital signs: Vital Signs Temp 98.1 F 05/20/20 09:00 Pulse 74 05/20/20 09:00 Resp 16 05/20/20 09:00 BP 124/64 05/20/20 09:00 Pulse Ox 97 05/20/20 09:00 Intake & Output 05/19/20 05/20/20 05/20/20 18:59 06:59 18:59 Weight 108.862 kg Other: Voiding Method Toilet Toilet # Voids 1 2 - Exam PHYSICAL EXAMINATION: GENERAL: The patient is alert and oriented x3, not in any acute distress. Obese HEENT: Pupils are round and equally reacting to light. EOMI. No scleral icterus. No conjunctival pallor. Normocephalic, atraumatic. No pharyngeal erythema. No thyromegaly. CARDIOVASCULAR: S1 and S2 present. No murmurs, rubs, or gallops. PULMONARY: Chest is clear to auscultation, no wheezing or crackles. ABDOMEN: Soft, nontender, nondistended, normoactive bowel sounds. No palpable organomegaly. MUSCULOSKELETAL: No joint swelling or deformity. EXTREMITIES: No cyanosis, clubbing, or pedal edema. NEUROLOGICAL: Gross neurological examination did not reveal any focal deficits. SKIN: No rashes. - Labs CBC & Chem 7: 05/20/20 07:41 05/20/20 07:41 Labs: Abnormal Lab Results - Last 24 Hours (Table) 05/20/20 Range/Units 07:41 Glucose 106 H (74-99) mg/dL AST 41 H (14-36) U/L ALT 53 H (4-34) U/L Assessment and Plan Plan: -Abdominal pain: Possibly of inguinal hernia management as per primary service -cerebro- vascular accident Plavix can be held temporarily, in case patient needs surgical intervention although this is not being planned at this time. 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
--- NOTE | 2020-05-20 12:46 | P.PN ---
Subjective Progress Note Date: 05/20/20 CHIEF COMPLAINT: Abdominal pain HISTORY OF PRESENT ILLNESS: The patient is a 64-year-old female with past history of adjustable gastric band including Javed's with reversal presented with left lower quadrant abdominal pain. "I felt like I was gonna !" as she reports her initial presentation to the hospital. She has minimal requirements for pain medications. She is sitting up at the bedside talking with her nurse. "I am just afraid this is gonna happen again." Her left lower quadrant abdominal pain is moderately improved. ROS: No fevers or chills. No new chest pain. No productive sputum PHYSICAL EXAM: VITAL SIGNS: Reviewed CONSTITUTIONAL: Well developed and in no acute distress. EYES: Conjuctivae without sclera icterus. Extraocular movements grossly intact. HEAD, EARS, NOSE, THROAT: Moist buccal mucosa. Head is atraumatic, normocephalic. Hears conversational speech. No nasal drainage. NECK: Supple. No thyroidomegaly. RESPIRATORY: Non-labored respirations and equal bilateral excursions. CARDIOVASCULAR: Palpable 2+ radial pulses. ABDOMEN: Protuberant. No peritonitis. MUSCULOSKELETAL: No gross deformity of the lower extremities noted. No clubbing. No cyanosis. SKIN: Good skin turgor. Well perfused. NEUROLOGIC: Cranial nerves II through XII grossly intact. No focal or lateralizing signs. PSYCH: Appropriate affect. Alert and oriented to person, place and time. STUDIES: CT of the abdomen and pelvis and the pedicle reviewed demonstrating mesenteric swirl at the jejunal mesentery. No signs of small bowel obstruction. CLINICAL LABS: White blood cell count normal at 4.5. LFTs mildly elevated from yesterday. ASSESSMENT: 1. Left lower quadrant abdominal pain. PLAN: 1. Start clear liquid diet. 2. Disposition pending tolerating diet and resolution of her abdominal pain Objective - Vital Signs Vital signs: Vital Signs Temp 98.1 F 05/20/20 09:00 Pulse 74 05/20/20 09:00 Resp 16 05/20/20 09:00 BP 124/64 05/20/20 09:00 Pulse Ox 97 05/20/20 09:00 Intake & Output 05/19/20 05/20/20 05/20/20 18:59 06:59 18:59 Weight 108.862 kg Other: Voiding Method Toilet Toilet # Voids 1 2 - Labs CBC & Chem 7: 05/20/20 07:41 05/20/20 07:41 Labs: Abnormal Lab Results - Last 24 Hours (Table) 05/20/20 Range/Units 07:41 Glucose 106 H (74-99) mg/dL AST 41 H (14-36) U/L ALT 53 H (4-34) U/L Assessment and Plan (1) Left lower quadrant abdominal pain Current Visit: Yes Status: Acute Code(s): R10.32 - LEFT LOWER QUADRANT PAIN SNOMED Code(s): 424779964 (2) Abnormal CT of the abdomen Current Visit: Yes Status: Acute Code(s): R93.5 - ABN FINDINGS ON DX IMAGING OF ABD REGIONS, INC RETROPERITON SNOMED Code(s): 95046619338545658 (3) Peritoneal adhesions Current Visit: Yes Status: Acute Code(s): K66.0 - PERITONEAL ADHESIONS (POSTPROCEDURAL) (POSTINFECTION) SNOMED Code(s): 40453477 (4) History of adjustable gastric banding Current Visit: Yes Status: Acute Code(s): Z98.84 - BARIATRIC SURGERY STATUS SNOMED Code(s): 245310437 (5) Intractable abdominal pain Current Visit: Yes Status: Acute Code(s): R10.9 - UNSPECIFIED ABDOMINAL PAIN SNOMED Code(s): 45324315
[2020-05-20 16:05] VITALS: BP 120/61; PULSE 75; TEMP 98
--- NOTE | 2020-05-20 17:14 | P.DS ---
Providers Date of admission: 05/19/20 08:33 Expected date of discharge: 05/20/20 Attending physician: Vickey Mcdaniels Consults: 05/19/20 15:49 Consult Physician Routine Consulting Provider: Lina Lewis Consult Reason/Comments: Medical management Do you want consulting provider notified?: Yes Primary care physician: Lizeth Mcdaniels - Discharge Diagnosis(es) (1) Left lower quadrant abdominal pain Current Visit: Yes Status: Acute (2) Abnormal CT of the abdomen Current Visit: Yes Status: Acute (3) Peritoneal adhesions Current Visit: Yes Status: Acute (4) History of adjustable gastric banding Current Visit: Yes Status: Acute (5) Intractable abdominal pain Current Visit: Yes Status: Acute Hospital Course: COURSE: The patient is a 64-year-old female with past history of adjustable gastric band including Javed's with reversal presented with left lower quadrant abdominal pain. "I felt like I was gonna !" as she reports her initial presentation to the hospital. She has minimal requirements for pain medications. She is sitting up at the bedside talking with her nurse. "I am just afraid this is gonna happen again." Her left lower quadrant abdominal pain is moderately improved. Since diet, she is tolerating diet. Her abdominal pain resolved. She was ready for discharge. Patient Condition at Discharge: Good Plan - Discharge Summary Discharge Rx Participant: No New Discharge Prescriptions: Continue Clopidogrel [Plavix] 75 mg PO DAILY atenoloL [Atenolol] 37.5 mg PO DAILY lamoTRIgine [LaMICtal] 25 mg PO HS Vortioxetine Hydrobromide [Trintellix] 10 mg PO DAILY ALPRAZolam [Xanax] 0.5 mg PO HS Acetaminophen [Tylenol Arthritis] 1,300 mg PO Q12H PRN PRN Reason: Pain Discharge Medication List Clopidogrel [Plavix] 75 mg PO DAILY 03/07/15 [History] atenoloL [Atenolol] 37.5 mg PO DAILY 03/07/15 [History] ALPRAZolam [Xanax] 0.5 mg PO HS 05/19/20 [History] Acetaminophen [Tylenol Arthritis] 1,300 mg PO Q12H PRN 05/19/20 [History] Vortioxetine Hydrobromide [Trintellix] 10 mg PO DAILY 05/19/20 [History] lamoTRIgine [LaMICtal] 25 mg PO HS 05/19/20 [History] Follow up Appointment(s)/Referral(s): Vickey Mcdaniels MD [Medical Doctor] - 1 Week Lizeth Mcdaniels MD [Primary Care Provider] - 1-2 days Patient Instructions/Handouts: Acute Abdominal Pain (DC) Discharge Disposition: HOME SELF-CARE
[2020-05-21] MEDS ORDERED: PANTOPRAZOLE 40 MG TABLET PO SCH (09:00)
== END 2020-05-20 18:00 | disposition home or self-care (01) ==
LOC: EC 06:07 → 1SOBS 08:33
PROVIDERS: ADMIT Surgery; ATTEND Surgery
DX: R10.32 Left lower quadrant pain (principal); R11.0 Nausea; R93.5 Abnormal findings on diagnostic imaging of other abdominal regions, including retroperitoneum; R79.89 Other specified abnormal findings of blood chemistry; K95.09 Other complications of gastric band procedure; K66.0 Peritoneal adhesions (postprocedural) (postinfection); K46.9 Unspecified abdominal hernia without obstruction or gangrene; N28.1 Cyst of kidney, acquired; Z87.19 Personal history of other diseases of the digestive system; E78.5 Hyperlipidemia, unspecified; I10 Essential (primary) hypertension; F41.9 Anxiety disorder, unspecified; F32.9 Major depressive disorder, single episode, unspecified; Z90.49 Acquired absence of other specified parts of digestive tract; Z98.84 Bariatric surgery status; Z96.659 Presence of unspecified artificial knee joint; Z96.649 Presence of unspecified artificial hip joint; Z87.891 Personal history of nicotine dependence; E66.9 Obesity, unspecified; Z68.36 Body mass index [BMI] 36.0-36.9, adult; Z86.73 Personal history of transient ischemic attack (TIA), and cerebral infarction without residual deficits; Z79.02 Long term (current) use of antithrombotics/antiplatelets; Z79.899 Other long term (current) drug therapy
CPT/HCPCS: 96365; 96366 ×2; 96372 ×2; 96375 ×3; 96376 ×3; 96361; 99285; 36415; 80053 ×2; 82150; 83605 ×2; 83690; 84484; 85025 ×2; 81001; 74019; 74177; G0378 ×2; J2543 ×2; J1644 ×2; J2765; J2405 ×2; J1170 ×4; J1885 ×2; C9113; Q9967

== ENCOUNTER → 2020-06-07 | Outpatient (CLI) | payer BC ==
--- NOTE | 2020-06-07 12:10 | CT ---
EXAMINATION TYPE: CT abdomen pelvis w con DATE OF EXAM: 06/07/2020 COMPARISON: 05/19/2020 HISTORY: Left sided pain with bowel changes. CT DLP: 2507.8 mGycm CONTRAST: CT scan of the abdomen and pelvis is performed with Oral Contrast and with IV Contrast, patient injec franklyn with 100 mL of Isovue 300. FINDINGS: LUNG BASES-: No visible nodule. No infiltrate. LIVER/GB: No calcified gallstones. No space occupying hepatic lesion. Biliary tree is of normal ca liber. PANCREAS: No inflammation. No distinct mass. SPLEEN: No splenic enlargement. No lesion seen. ADRENALS: No nodule. No thickening. KIDNEYS/BLADDER: No hydronephrosis. No nephrolithiasis. No distinct renal mass. Urinary bladder g rossly unremarkable. BOWEL: Normal appendix. Gastric banding device is in place and appears unchanged since prior study. A degree of slippage is difficult to exclude. Normal bowel caliber. No inflammation. GENITAL ORGANS: No gross abnormality. LYMPH NODES: No greater than 1cm abdominal or pelvic lymph nodes are appreciated. AORTA: No significant abnormality. OSSEOUS STRUCTURES: No significant abnormality is seen. OTHER: Left lower quadrant subcutaneous nodule is noted just anterior to the abdominal wall measures 1.3 cm and is of uncertain etiology. Correlate with the patient's site of pain. IMPRESSION: 1. Left lower quadrant subcutaneous nodule is noted just anterior to the abdominal wall measures 1.3 cm and is of uncertain etiology. Correlate with the patient's site of pain. 2.Gastric banding device is in place and appears unchanged since prior study. A degree of slippage is difficult to exclude.
== END | disposition home or self-care (01) ==
LOC: RADCTMAIN 09:56
PROVIDERS: ATTEND Surgery
DX: R19.04 Left lower quadrant abdominal swelling, mass and lump (principal); Z98.84 Bariatric surgery status
CPT/HCPCS: 74177; Q9967

== ENCOUNTER → 2020-06-09 | Outpatient (CLI) | payer BC ==
--- NOTE | 2020-06-09 12:00 | FL ---
GASTRIC BANDING ESOPHAGRAM CLINICAL HISTORY: Pain Gastric banding esophagram was performed. The patient ingested thin liquid barium without difficulty or delay. Gastric band is noted to be in place. There is no evidence for leak or obstruction. No prolapse is identified. IMPRESSION: Normal-appearing gastric banding device without leak or obstruction.
== END | disposition home or self-care (01) ==
LOC: RADUSWWP 09:58
PROVIDERS: ATTEND Surgery
DX: K95.09 Other complications of gastric band procedure (principal)
CPT/HCPCS: 74220

== ENCOUNTER 2022-04-09 17:00 | Emergency (ER) | payer BC ==
--- NOTE | 2022-04-09 18:36 | XR ---
EXAMINATION TYPE: XR chest 2V DATE OF EXAM: 04/09/2022 COMPARISON: 02/09/2017 HISTORY: Fever and chills TECHNIQUE: 2 view FINDINGS: There is no heart failure nor confluent pneumonic infiltrate. Costophrenic angles are clear . There are no hilar masses. Bony thorax is intact. There are some minimal pulmonary interstitial sep eddie lines at the lateral lung bases. IMPRESSION: Slight increased pulmonary interstitial density at the lung bases compared to old exam. N o pulmonary consolidation or heart failure.
[2022-04-09] MEDS ORDERED: OSELTAMIVIR 75 MG CAP PO STA (19:10)
[2022-04-09] MEDS ORDERED: IBUPROFEN 400 MG TAB PO STA (19:10)
[2022-04-09] MEDS ORDERED: ACETAMINOPHEN TAB 500 MG TAB PO STA (19:10)
[2022-04-09] MEDS ORDERED: IPRATROPIUM-ALBUTEROL 3 ML NEB INHALATION STA (19:11)
--- NOTE | 2022-04-09 19:14 | ED ---
URI HPI - General Chief Complaint: Upper Respiratory Infection Stated Complaint: Fever,Chills,SOB Time Seen by Provider: 04/09/22 18:54 Source: patient, RN notes reviewed Mode of arrival: wheelchair Limitations: no limitations - History of Present Illness Initial Comments: This is a pleasant 66-year-old female presents with cough, body aches, nasal congestion, postnasal drip, diarrhea and body aches. Patient has been ill for 2 days. Patient also had some shaking chills and fever. Took Tylenol at work. 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 States that she was coughing and had some shortness of breath. Took her 's inhaler which did help. no changes in vision or hearing, no sore throat or difficulty with speech, no neck pain, no chest pain, no abdominal pain, no nausea or vomiting, no changes in urination, no numbness or tingling, no extremity pain, no skin rashes or lesions. Past medical, surgical, social, and family history reviewed. - Related Data Home Medications Medication Instructions Recorded Confirmed Clopidogrel [Plavix] 75 mg PO DAILY 03/07/15 05/19/20 atenoloL 37.5 mg PO DAILY 03/07/15 05/19/20 ALPRAZolam [Xanax] 0.5 mg PO HS 05/19/20 05/19/20 Acetaminophen [Tylenol Arthritis] 1,300 mg PO Q12H PRN 05/19/20 05/19/20 Vortioxetine Hydrobromide 10 mg PO DAILY 05/19/20 05/19/20 [Trintellix] lamoTRIgine [LaMICtal] 25 mg PO HS 05/19/20 05/19/20 Previous Rx's Medication Instructions Recorded Albuterol Inhaler [Ventolin Hfa 2 puff INHALATION Q4HR PRN #1 each 04/09/22 Inhaler] Oseltamivir [Tamiflu] 75 mg PO Q12HR #10 cap 04/09/22 Allergies Allergy/AdvReac Type Severity Reaction Status Date / Time No Known Allergies Allergy Verified 05/19/20 07:29 Review of Systems ROS Statement: Those systems with pertinent positive or pertinent negative responses have been documented in the HPI. ROS Other: All systems not noted in ROS Statement are negative. Past Medical History Past Medical History: Coronary Artery Disease (CAD), CVA/TIA, Hyperlipidemia, Hypertension History of Any Multi-Drug Resistant Organisms: None Reported Past Surgical History: Appendectomy, Cholecystectomy, Orthopedic Surgery Additional Past Surgical History / Comment(s): cholostomy, reversal cholostomy, perforated diverticulitis lap band, knee and hip replaced Past Psychological History: Anxiety, Depression Smoking Status: Former smoker Past Alcohol Use History: Occasional Past Drug Use History: None Reported General Exam Limitations: no limitations General appearance: alert, in no apparent distress Head exam: Present: atraumatic, normocephalic, normal inspection Eye exam: Present: normal appearance, PERRL, EOMI. Absent: scleral icterus, conjunctival injection, periorbital swelling ENT exam: Present: normal exam, normal oropharynx, mucous membranes moist, TM's normal bilaterally, normal external ear exam. Absent: mucous membranes dry Neck exam: Present: normal inspection, full ROM. Absent: tenderness, meningismus, lymphadenopathy Respiratory exam: Present: normal lung sounds bilaterally. Absent: respiratory distress, wheezes, rales, rhonchi, stridor, chest wall tenderness, accessory muscle use, decreased breath sounds, prolonged expiratory Cardiovascular Exam: Present: regular rate, normal rhythm, normal heart sounds. Absent: systolic murmur, diastolic murmur, rubs, gallop, clicks GI/Abdominal exam: Present: soft, normal bowel sounds. Absent: distended, tenderness, guarding, rebound, rigid Extremities exam: Present: normal inspection, full ROM, normal capillary refill. Absent: tenderness, pedal edema, joint swelling, calf tenderness Back exam: Present: normal inspection Neurological exam: Present: alert, oriented X3, CN II-XII intact Psychiatric exam: Present: normal affect, normal mood Skin exam: Present: warm, dry, intact, normal color. Absent: rash Course Vital Signs 04/09/22 04/09/22 04/09/22 17:37 18:55 19:26 Temperature 100.3 F H Pulse Rate 83 75 Respiratory 20 26 H Rate Blood Pressure 176/79 O2 Sat by Pulse 98 Oximetry 04/09/22 19:35 Temperature 99.8 F H Pulse Rate 83 Respiratory 18 Rate Blood Pressure 123/72 O2 Sat by Pulse 94 L Oximetry - Reevaluation(s) Reevaluation #1: 04/09/22 19:37 Patient reevaluated prior to discharge. No respiratory distress. Respiratory rate is 16. Patient was given a breathing treatment here. I'm going to prescribe an inhaler for home. Patient released in stable condition. Medical Decision Making - Medical Decision Making Patient symptomology consistent with influenza. Patient was tested in triage and tested positive. Given the patient's chest x-ray, do not believe this is consistent with secondary pneumonia. We'll treat with Tamiflu, acetaminophen, ibuprofen. I'm going to order a DuoNeb treatment prescribed inhalers the patient states this was beneficial. Patient counseling quarantine measures. Counseled on disease course and etiology. Patient was told to return to the ER for any signs or symptoms worsen. Told to return immediately if any other problems arise. All questions answered. Treatment plan discussed. Patient in agreement Every effort has been made to ensure accuracy of this dictation. However, due to the limitations of electronic medical records and dictation devices, errors in charting still occur. Supervising Dr. Shane - Lab Data Lab Results 04/09/22 Range/Units 17:42 Influenza Type A (PCR) Detected A (Not Detectd) Influenza Type B (PCR) Not Detected (Not Detectd) RSV (PCR) Not Detected (Not Detectd) SARS-CoV-2 (PCR) Not Detected (Not Detectd) - Radiology Data Radiology results: report reviewed (Two-view chest x-ray interpreted by me reveals evidence of increased interstitial markings consistent with viral disease. Reviewed the radiology report.), image reviewed Disposition Clinical Impression: Influenza A Disposition: HOME SELF-CARE Condition: Good Instructions (If sedation given, give patient instructions): Influenza (ED) Additional Instructions: Alternate acetaminophen and ibuprofen every 3-4 hours for fever control. Take the Tamiflu as directed. Albuterol 2 puffs every 4 hours as needed. Follow-up with your regular physician as directed. Return to the ER immediately if any symptoms worsen, new symptoms arise, or any other problems develop Prescriptions: Oseltamivir [Tamiflu] 75 mg PO Q12HR #10 cap Albuterol Inhaler [Ventolin Hfa Inhaler] 2 puff INHALATION Q4HR PRN #1 each PRN Reason: Wheezing Is patient prescribed a controlled substance at d/c from ED?: No Referrals: Lizeth Mcdaniels MD [Primary Care Provider] - 1-2 days Time of Disposition: 19:55
[2022-04-09 19:36] VITALS: BP 123/72; PULSE 83; RESP 18; TEMP 99.8
== END 2022-04-09 20:13 | disposition home or self-care (01) ==
LOC: EC 17:00
DX: J10.1 Influenza due to other identified influenza virus with other respiratory manifestations (principal); I11.0 Hypertensive heart disease with heart failure; I25.10 Atherosclerotic heart disease of native coronary artery without angina pectoris; F41.9 Anxiety disorder, unspecified; F32.A Depression, unspecified; Z87.891 Personal history of nicotine dependence; Z20.822 Contact with and (suspected) exposure to COVID-19
CPT/HCPCS: 71046; 87636; 94640; 99285

== ENCOUNTER → 2022-07-18 | Outpatient (CLI) | payer BC ==
--- NOTE | 2022-07-21 12:47 | MM ---
Reason for Exam: Screening (asymptomatic). Last mammogram was performed 4 year(s) and 8 month(s) ago. Patient History: Menarche at age 14. First Full-Term at age 29. Postmenopausal. Risk Values: Mamta 5 year model risk: 1.8%. NCI Lifetime model risk: 7.2%. Prior Study Comparison: 08/13/2013 Bilateral Screening Mammogram, [facility]. 11/27/2017 Bilateral Screening Mammogram, [facility]. Tissue Density: There are scattered fibroglandular densities. Findings: Analyzed By CAD. Benign regional round calcifications redemonstrated laterally in the right breast. Unchanged global asymmetry upper outer quadrant left breast. Bilateral subareolar densities on the CC views remain unchanged. There is no suspicious group of microcalcifications or new suspicious mass in either breast. Overall Assessment: Benign, BI-RAD 2 Management: Screening Mammogram of both breasts in 1 year. 1. Patient should continue monthly self breast exams. 2. A clinical breast exam by your physician is recommended on an annual basis. 3. This exam should not preclude additional follow-up of suspicious palpable abnormalities. Electronically signed and approved by: Josefa Alfonso M.D. Radiologist
== END | disposition home or self-care (01) ==
LOC: RADMAMWWP 14:41
PROVIDERS: ATTEND Family Medicine
DX: Z12.31 Encounter for screening mammogram for malignant neoplasm of breast (principal); Z78.0 Asymptomatic menopausal state
CPT/HCPCS: 77063; 77067

== ENCOUNTER → 2023-03-06 | Outpatient (CLI) | payer BC ==
--- NOTE | 2023-03-06 11:51 | P.SLEEP ---
History of Present Illness DATE: 03/06/2023 CONSULTATION/NEW PATIENT EVALUATION HISTORY OF PRESENT ILLNESS/SLEEP-WAKE EVALUATION: 67-year-old lady had been ev aluated in the sleep center for possible obstructive sleep apnea hypopnea syndrome. SLEEP SCHEDULE: Usually sleep schedule from 9 PM to 5 AM on weekdays and from 9 PM to 7 AM on weekend. FALLING ASLEEP: Patient does have problems sometimes with falling asleep, although no TV in bedroom. DURING SLEEP: Patient usually sleeps on the side position with loud snoring and awakenings from sleep 3 times with nocturia. No history of hypnogogical hallucinations, sleep paralysis, or cataplexy. DURING THE DAY/WAKE STATE: In the morning patient wake up tired, has problems with memory, concentration. Glasgow sleepiness scale is 9. Patient takes 1 nap at 3 PM. PAST MEDICAL HISTORY: Stroke, hypertension, arthritis, depression. PAST SURGICAL HISTORY: Right knee replacement, right hip replacement, colostomy which was reversed, lap band, carotid endarterectomy on the left side. MEDICATIONS: Clopidogrel 75 mg once a day, atenolol 25 mg once a day, lamotrigine 25 mg once a day, alprazolam 0.5 mg up to 2 times a day, wegovy 0.4 mg once a week. SOCIAL HISTORY: Positive history for smoking for 40 years 1 pack a day, quit, alcohol consumption occasional. FAMILY HISTORY: Hypertension, stroke, sleep apnea, mental illness. REVIEW OF SYSTEMS: Snoring, multiple awakenings from sleep sleepiness during the day. No fevers. No double vision. No recent chest pain. No shortness of breath. No abdominal pain. No bleeding episodes. No blood in urine. No seizure episodes. PHYSICAL EXAMINATION: GENERAL: A pleasant patient without any distress. VITAL SIGNS: BP 139/80, HR 78, RR 16, weight 190.6 pounds, height 5 foot 6-1/4 inches, body mass index 30.4. HEENT: PERRLA, EOMI. Evaluation of oropharynx showed tongue protrudes midline, low position of soft palate Mallampati 3-4. NECK: Supple. No JVD. Thyroid is not palpable. 15 inches in circumference. LUNGS: Clear to percussion and to auscultation. Good air exchange. No wheezing or rhonchi. HEART: S1, S2 regular. No murmurs, gallops or rubs. ABDOMEN: Soft and nontender. Bowel sounds are present. No organomegaly appreciated. EXTREMITIES: No clubbing or cyanosis. 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 Cranial nerves 2 to 7 intact. There is no fasciculation or atrophy noted. No focal deficits observed. ASSESSMENT: 1. Loud snoring, multiple awakenings from sleep, low position of soft palate Mallampati 34, episodes of sleepiness. Obstructive sleep apnea hypopnea syndrome. 2. History of stroke. 3. Hypertension. 4. History of depression. 5 status post carotid endarterectomy on the left side. 6 . Status post reversed colostoma. 7. Status post right knee replacement. 8. Status post right hip replacement. 9 . Status post lap band surgery. 10. Mild obesity by body mass index 30.4 PLAN: 1. Polysomnography for evaluation of patient's breathing during sleep. 2. CPAP/BiPAP titration if sleep study confirms obstructive sleep apnea- hypopnea syndrome. 3. Preferable position during sleep on the side. 4. No driving if patient feels any sleepiness. Patient is aware of civil and criminal liability for unsafe driving. 5. Sleep hygiene with regular sleep time for at least 7.5-8 hours. 6. Watching and losing weight. Thank you very much for referring this patient for consultation. Sincerely, Ryan Dwyer MD, PhD, FAASM. Diplomat of [place] [employer], Sleep Medicine Board by [place] [employer] [place] [employer] [facility] [place] Past Medical History Past Medical History: Coronary Artery Disease (CAD), CVA/TIA, Hyperlipidemia, Hypertension History of Any Multi-Drug Resistant Organisms: None Reported Past Surgical History: Appendectomy, Cholecystectomy, Orthopedic Surgery Additional Past Surgical History / Comment(s): cholostomy, reversal cholostomy, perforated diverticulitis lap band, knee and hip replaced Past Psychological History: Anxiety, Depression Smoking Status: Former smoker Past Alcohol Use History: Occasional Past Drug Use History: None Reported Medications and Allergies Home Medications Medication Instructions Recorded Confirmed Type Clopidogrel [Plavix] 75 mg PO DAILY 03/07/15 05/19/20 History atenoloL 37.5 mg PO DAILY 03/07/15 05/19/20 History ALPRAZolam [Xanax] 0.5 mg PO HS 05/19/20 05/19/20 History Acetaminophen [Tylenol Arthritis] 1,300 mg PO Q12H PRN 05/19/20 05/19/20 History Vortioxetine Hydrobromide 10 mg PO DAILY 05/19/20 05/19/20 History [Trintellix] lamoTRIgine [LaMICtal] 25 mg PO HS 05/19/20 05/19/20 History Albuterol Inhaler [Ventolin Hfa 2 puff INHALATION Q4HR PRN #1 each 04/09/22 Rx Inhaler] Oseltamivir [Tamiflu] 75 mg PO Q12HR #10 cap 04/09/22 Rx Allergies Allergy/AdvReac Type Severity Reaction Status Date / Time No Known Allergies Allergy Verified 05/19/20 07:29 Sleep Note - Sleep Note Sleep Note: Temperature: Pulse Rate: Respiratory Rate: Blood Pressure: SpO2: Height: Weight: BMI: Neck Circumference:
== END ==
LOC: 3 N SLEEP 10:36
PROVIDERS: ATTEND Internal Medicine
DX: G47.33 Obstructive sleep apnea (adult) (pediatric) (principal); I10 Essential (primary) hypertension; E66.9 Obesity, unspecified; M19.90 Unspecified osteoarthritis, unspecified site; F32.A Depression, unspecified; Z98.890 Other specified postprocedural states; Z96.651 Presence of right artificial knee joint; Z96.641 Presence of right artificial hip joint; Z68.30 Body mass index [BMI] 30.0-30.9, adult; Z46.51 Encounter for fitting and adjustment of gastric lap band; Z98.84 Bariatric surgery status; Z98.62 Peripheral vascular angioplasty status; Z86.73 Personal history of transient ischemic attack (TIA), and cerebral infarction without residual deficits; Z87.891 Personal history of nicotine dependence; Z79.899 Other long term (current) drug therapy; Z79.02 Long term (current) use of antithrombotics/antiplatelets
CPT/HCPCS: 99211

== ENCOUNTER → 2023-05-07 | Outpatient (CLI) | payer BC ==
--- NOTE | 2023-05-08 23:56 | BD ---
EXAMINATION TYPE: Axial Bone Density DATE OF EXAM: 05/07/2023 CLINICAL HISTORY: 67 years old Female. ICD-10 CODE: Z78.0 ASYM MENOPAUSAL STATE Height: 5 ft 6 1/2 in Weight: 185 FRAX RISK QUESTIONS: Alcohol (3 or more units per day): no Family History (Parent hip fracture): no Glucocorticoids (More than 3mos): no (Ex: prednisone, prednisolone, methylprednisolone, dexamethasone, and hydrocortisone). History of Fracture in Adulthood: no Secondary Osteoporosis: 1. Type 1 Diabetes: no 2. Hyperthyroidism: no 3. Menopause before 45: no 4. Malnutrition: no 5. Chronic liver disease: no Rheumatoid Arthritis: no Current Tobacco Use: no RISK FACTORS HISTORY OF: Surgery to Spine/Hip(right/left)/Wrist (right/left): rt hip replacement When: approx 10 years ago Family History of Osteoporosis: no Active: yes Diet low in dairy products/other sources of calcium: no Postmenopausal woman: yes Take estrogen and/or progesterone medications: no Lost more than 2 inches in height since high school: no Frequent falls: no Poor Health: good Hyperparathyroidism: no Adrenal Insufficiency: no MEDICATIONS: Additional Medications: Plavix, Atenolol, xanax, anti depressant, lamotrigine, Additional History: EXAM MEASUREMENTS: Bone mineral densitometry was performed using the [employer] System. Bone mineral density as measured about the Lumbar spine is: ----- L1-L4(G/cm2): 1.547 T Score Values are as follows: ----- L1: 1.8 ----- L2: 2.5 ----- L3: 3.8 ----- L4: 3.7 ----- L1-L4: 3.1 Z Score Values are as follows: ----- L1: 2.8 ----- L2: 3.4 ----- L3: 4.7 ----- L4: 4.6 ----- L1-L4: 4.0 baseline Bone mineral density about the L hip (g/cm2): 0.827 T Score values are as follows: -----L Neck: -1.5 -----L Total: -1.0 Z Score values are as follows: -----L Neck: -0.4 -----L Total: -0.3 baseline FRAX%s: The graph provided illustrates a 8.9 % chance for a major osteoporotic fx and a 1.0 % chance for the hips probability for fx in 10 years time. IMPRESSION: Osteopenia (T Score between -2.5 and -1). There is slightly increased risk of fracture and the patient may be considered for treatment. Re-Screen 2-5 years. NOTE: T-SCORE=SD OF THE YOUNG ADULT MEAN.
== END | disposition home or self-care (01) ==
LOC: RADBDWWP 08:39
PROVIDERS: ATTEND Family Medicine
DX: M85.852 Other specified disorders of bone density and structure, left thigh (principal); Z78.0 Asymptomatic menopausal state
CPT/HCPCS: 77080

== ENCOUNTER 2023-05-19 19:47 | Outpatient (CLI) | payer MEDICARE ==
--- NOTE | 2023-05-21 14:02 | P.PCN ---
Description of Procedure: POLYSOMNOGRAPHY REPORT PROCEDURE(S)/DATE(S): Polysomnography on 2023 CLINICAL: Patient has been seen in the sleep center for evaluation of obstructive sleep apnea-hypopnea syndrome. Please see my consultation. Sleep study has been done for evaluation of patient breathing during the sleep. PROCEDURE: The standard montage for clinical polysomnography included the electroencephalogram, the electrooculogram, the mentalis surface electromyography and Lead II cardiography. The respiratory battery consisted of measurements of nasal/buccal air flow, pressure transducer measurements from nose, thoracic and/or abdominal effort and intercostal surface electromyography. Video monitoring has been done to check for any parasomnia events. Nocturnal oxyhemoglobin saturations were obtained by finger oximetry. Step-blanca titration with positive airway pressure was utilized to control the respiratory events, if necessary. RESULTS: During the diagnostic sleep study sleep efficiency was extremely short 51.2 %. Latency to sleep onset was significantly prolonged to 51.0 min. Sleep architecture showed stage NI was slightly short 5.1 %, Delta sleep was absent 0 %, REM sleep was high range 30.7 %. Respiratory channel showed 0 obstructive apneas, 0 mixed apneas, 0 central apnea s, 0 hypopneas with lowest oxygen level 94%. Total apnea hypopnea index was 0. Heart rate was in the range between 71 and 82, average 76. EMG showed 45.6 periodic limb movements per hour with 0.3 micro-arousals per hour. IMPRESSIONS: 1. No significant respiratory abnormalities have been documented during the sleep test, normal oxygenation during the sleep 2. Significant periodic limb movements have been documented. 3. Low sleep efficiency for the secondary to insomnia or first night adoptation response. Please see other impressions from consultation PLAN: 1. I will see patient for follow-up visit to explain the results of the test and recommendations. 2. We may consider pharmacotherapy for periodic limb movements. 3. Sleep hygiene with regular time in bed for at least 7-1/2 hours. 4. No driving if feeling sleepiness. 5. Please check iron profile including ferritin level. Low level of iron may increase the risk for periodic limb movements. Thank you very much for allowing me to participate in the management of your patient. Sincerely, Ryan Dwyer MD, PhD, FAASM. Diplomat of [place] [employer], Sleep Medicine Board by [place] [employer] Removalist [facility] [place]
== END 2023-05-20 03:50 | disposition home or self-care (01) ==
LOC: 3 N SLEEP 19:47
PROVIDERS: ATTEND Internal Medicine
DX: G47.33 Obstructive sleep apnea (adult) (pediatric) (principal); G47.00 Insomnia, unspecified; G47.61 Periodic limb movement disorder; Z87.891 Personal history of nicotine dependence
CPT/HCPCS: 95810

== ENCOUNTER → 2023-08-14 | Outpatient (CLI) | payer MEDICARE ==
--- NOTE | 2023-08-19 13:55 | MM ---
Reason for Exam: Screening (asymptomatic). Last mammogram was performed 1 year(s) and 1 month(s) ago. Patient History: Menarche at age 14. First Full-Term at age 29. Postmenopausal. Patient has history of breast feeding. Risk Values: Mamta 5 year model risk: 1.8%. NCI Lifetime model risk: 6.9%. Prior Study Comparison: 08/13/2013 Bilateral Screening Mammogram, [facility]. 11/27/2017 Bilateral Screening Mammogram, [facility]. 07/18/2022 Bilateral MG 3D screening mammo w/cad, [facility]. Tissue Density: The breasts are almost entirely fatty. Findings: Analyzed By CAD. Right breast: There is no suspicious group of microcalcifications or new suspicious mass. Benign-appearing calcifications right breast. Left breast: There is no suspicious group of microcalcifications or new suspicious mass. Benign-appearing calcifications left breast. Overall Assessment: Benign, BI-RAD 2 Management: Screening Mammogram of both breasts in [address] [facility] will attempt to contact patient to return for supplemental views and ultrasound if indicated. Patient should continue monthly self-breast exams. A clinical breast exam by your physician is recommended on an annual basis. This exam should not preclude additional follow-up of suspicious palpable abnormalities. Note on Mamta scores and lifetime risk: 1. A Mamta score greater than 3% is considered moderate risk. If this is the case, consider specialist referral to assess eligibility for a risk reducing agent. 2. If overall lifetime risk for the development of breast cancer is 20% or higher, the patient may qualify for future screening with alternating mammogram and breast MRI. Electronically signed and approved by: Ovi Ladd DO
== END | disposition home or self-care (01) ==
LOC: RADMAMWWP 13:00
PROVIDERS: ATTEND Family Medicine
DX: Z12.31 Encounter for screening mammogram for malignant neoplasm of breast (principal); Z78.0 Asymptomatic menopausal state
CPT/HCPCS: 77063; 77067